=== PATIENT | male | born 1995 | race Caucasian/White ===

== ENCOUNTER 2018-12-11 10:47 | Emergency (ER) | payer OTHER ==
[~2018-12-11] VITALS: Ht 185.4 cm; Wt 79.5 kg
[2018-12-11] MEDS ORDERED: NON-325T5 PO (10:56)
[2018-12-11] MEDS ORDERED: CYCL10TA PO (13:18)
[2018-12-11] MEDS ORDERED: IBUP-1022 PO (13:18)
[2018-12-11 13:30] VITALS: BP 114/58
== END 2018-12-11 13:37 | disposition home or self-care (01) ==
LOC: M ED 10:47
DX: S39.012A Strain of muscle, fascia and tendon of lower back, initial encounter (principal); X58.XXXA Exposure to other specified factors, initial encounter; Y92.89 Other specified places as the place of occurrence of the external cause; Y93.9 Activity, unspecified; Y99.1 Military activity; Z72.0 Tobacco use; Z91.018 Allergy to other foods

== ENCOUNTER → 2018-12-19 | Outpatient (CLI) | payer OTHER ==
[~2018-12-19] MED LIST: CYCL10TA PO; IBUP-1022 PO; NON-325T5 PO
== END ==
LOC: M OUTALCOH 08:08
PROVIDERS: ATTEND Psychiatry & Neurology Psychiatry
DX: F10.20 Alcohol dependence, uncomplicated (principal)

== ENCOUNTER 2019-01-24 08:45 | Outpatient (RCR) | payer OTHER | END 2019-01-26 | LOC: M OUTALCOH 08:45 | PROVIDERS: ATTEND Psychiatry & Neurology Psychiatry | DX: F10.20 Alcohol dependence, uncomplicated (principal); F17.200 Nicotine dependence, unspecified, uncomplicated ==

== ENCOUNTER → 2019-02-26 | Outpatient (RCR) | payer OTHER | LOC: M OUTALCOH 01-27 09:59 | PROVIDERS: ATTEND Psychiatry & Neurology Psychiatry | DX: F10.20 Alcohol dependence, uncomplicated (principal); F17.200 Nicotine dependence, unspecified, uncomplicated ==

== ENCOUNTER 2019-03-26 16:00 | Outpatient (RCR) | payer OTHER | END 2019-03-29 | LOC: M OUTALCOH 16:00 | PROVIDERS: ATTEND Psychiatry & Neurology Psychiatry | DX: F10.20 Alcohol dependence, uncomplicated (principal); F17.200 Nicotine dependence, unspecified, uncomplicated ==

== ENCOUNTER → 2019-04-28 | Outpatient (RCR) | payer OTHER | LOC: M OUTALCOH 04-16 16:00 | PROVIDERS: ATTEND Psychiatry & Neurology Psychiatry | DX: F10.20 Alcohol dependence, uncomplicated (principal); F17.200 Nicotine dependence, unspecified, uncomplicated ==

== ENCOUNTER 2019-05-26 16:00 | Outpatient (RCR) | payer OTHER | END 2019-05-29 | LOC: M OUTALCOH 16:00 | PROVIDERS: ATTEND Psychiatry & Neurology Psychiatry | DX: F10.20 Alcohol dependence, uncomplicated (principal); F17.200 Nicotine dependence, unspecified, uncomplicated ==

== ENCOUNTER 2019-06-23 16:00 | Outpatient (RCR) | payer OTHER | END 2019-06-28 | LOC: M OUTALCOH 16:00 | PROVIDERS: ATTEND Psychiatry & Neurology Psychiatry | DX: F10.20 Alcohol dependence, uncomplicated (principal); F17.200 Nicotine dependence, unspecified, uncomplicated ==

== ENCOUNTER 2019-07-14 15:08 | Emergency (ER) | payer OTHER ==
[~2019-07-14] VITALS: Ht 188 cm; Wt 81.5 kg
[2019-07-14 15:08] VITALS: BP 125/78
[2019-07-14] MEDS ORDERED: BACT800T5 PO (15:48)
== END 2019-07-14 16:00 | disposition home or self-care (01) ==
LOC: M ED 15:08
DX: L02.211 Cutaneous abscess of abdominal wall (principal); F17.220 Nicotine dependence, chewing tobacco, uncomplicated; Z91.018 Allergy to other foods

== ENCOUNTER 2019-07-15 13:00 | Outpatient (RCR) | payer OTHER ==
[~2019-07-15 13:00] MED LIST changes: +BACT800T5 PO
== END 2019-07-29 ==
LOC: M OUTALCOH 13:00
PROVIDERS: ATTEND Psychiatry & Neurology Psychiatry
DX: F10.20 Alcohol dependence, uncomplicated (principal); F17.200 Nicotine dependence, unspecified, uncomplicated

== ENCOUNTER 2019-08-20 12:00 | Outpatient (RCR) | payer OTHER | END 2019-08-29 | LOC: M OUTALCOH 12:00 | PROVIDERS: ATTEND Psychiatry & Neurology Psychiatry | DX: F10.20 Alcohol dependence, uncomplicated (principal); F17.200 Nicotine dependence, unspecified, uncomplicated ==

== ENCOUNTER 2019-09-23 15:04 | Outpatient (RCR) | payer OTHER | END 2019-09-27 | LOC: M OUTALCOH 15:04 | PROVIDERS: ATTEND Psychiatry & Neurology Addiction Medicine | DX: F10.20 Alcohol dependence, uncomplicated (principal); F17.200 Nicotine dependence, unspecified, uncomplicated ==